=== PATIENT | male | born 1995 | race Caucasian/White ===

== ENCOUNTER 2023-07-09 07:29 | Outpatient (CLI) | payer MEDICAID, OTHER | END 2023-07-09 23:42 | disposition critical access hospital (66) | LOC: EMS 07:29 | DX: I46.9 Cardiac arrest, cause unspecified (principal) | CPT/HCPCS: A0425; A0433 ==

== ENCOUNTER 2023-07-09 07:45 | Emergency (ER) | payer MEDICAID, OTHER ==
--- NOTE | 2023-07-09 07:54 | ED Physician Documentation ---
PD HPI CPR - Stated complaint Stated Complaint: ROSC - History obtained from History obtained from: Patient - History of Present Illness Timing - onset: How many hours ago (1) Timing - onset during: Light activity (he was at grocery outlet store and just walking out when seen to collapse. No apparent pain nor injury. Bystanders noted no pulse and started CPR. EMS there in few minutes and found v-fib, pt defib and epi/defib several times with return of sustaineable rhythm sinus with pulse. Intubated enroute.) Preceding symptoms: Unknown Contributing factors: No: CAD, Diabetes Witnessed: Arrest witnessed Fall: Fell down Bystander CPR: Bystander CPR EMS findings: Unresponsive, Apneic, Pulseless, V fib Treatment SOLUTION SPECIALIST: CPR, Defibrillated, BVM, Intubated, Epi, Amiodarone Advanced directive: Full code Review of Systems Unable to obtain: Intubated, AMS PD PAST MEDICAL HISTORY - Past Medical History Cardiovascular: None Respiratory: None Endocrine/Autoimmune: None - Present Medications Home Medications: Ambulatory Orders Medication Instructions Recorded Confirmed Melatonin 5 mg PO HS PRN 07/09/23 07/09/23 - Allergies Allergies/Adverse Reactions: Allergies Allergy/AdvReac Type Severity Reaction Status Date / Time No Known Drug Allergies Allergy Verified 07/09/23 10:51 - Living Situation Living Situation: reports: With spouse/s.o. Living Arrangement: reports: At home - Social History Does the pt smoke?: No Does the pt drink ETOH?: No Does the pt have substance abuse?: Yes Substance Use and Type: Marijuana (occasional) PD ED PE NORMAL - General General: Well developed/nourished (high BMI at 47), Other (he is intubated with bagged respirations, Lungs sound symmetric. No movement nor resp effort c/w recently medicated for paralytic. ) - HEENT HEENT: Atraumatic, Pharynx benign - Cardiac Cardiac: RRR, No murmur - Respiratory Respiratory: No: Clear bilaterally (mild congested sounds both sides. ) - Abdomen Abdomen: Non distended - Derm Derm: Normal color. No: Warm and dry (sweaty.) - Extremities Extremities: No edema Results - Vitals Vitals: Vital Signs - 24 hr 07/09/23 07/09/23 07/09/23 07:55 08:00 08:10 Temperature Heart Rate 94 77 120 H Respiratory 20 20 16 Rate Blood Pressure 199/109 H 186/112 H 179/120 H O2 Saturation 89 L 83 L 89 L 07/09/23 07/09/23 07/09/23 08:20 08:30 08:39 Temperature Heart Rate 94 96 117 H Respiratory 22 24 Rate Blood Pressure 194/127 H 156/98 H O2 Saturation 83 L 84 L 07/09/23 07/09/23 07/09/23 08:45 09:00 09:15 Temperature Heart Rate 119 H 104 H 110 H Respiratory 25 H 21 Rate Blood Pressure 148/107 H 157/133 H 162/101 H O2 Saturation 87 L 84 L 96 07/09/23 07/09/23 07/09/23 09:25 09:45 10:00 Temperature Heart Rate 112 H 977 H 115 H Respiratory 24 22 26 H Rate Blood Pressure 145/80 H 98/54 L 92/58 L O2 Saturation 97 97 98 07/09/23 07/09/23 07/09/23 10:10 10:28 10:30 Temperature Heart Rate 110 H 67 70 Respiratory 24 Rate Blood Pressure 90/33 L 69/32 L O2 Saturation 94 100 07/09/23 07/09/23 07/09/23 10:45 11:00 11:15 Temperature 35.9 C L Heart Rate 68 67 69 Respiratory 20 20 20 Rate Blood Pressure 69/38 L 85/47 L 90/60 O2 Saturation 100 100 100 07/09/23 07/09/23 07/09/23 11:23 11:30 11:42 Temperature Heart Rate 69 69 67 Respiratory 20 20 Rate Blood Pressure 92/58 L 91/52 L O2 Saturation 100 100 07/09/23 07/09/23 07/09/23 11:51 12:00 12:10 Temperature Heart Rate 67 67 65 Respiratory 20 20 20 Rate Blood Pressure 91/55 L 96/59 L 88/57 L O2 Saturation 100 100 100 07/09/23 07/09/23 07/09/23 12:15 12:30 12:47 Temperature 35.9 C L Heart Rate 66 65 64 Respiratory 20 20 20 Rate Blood Pressure 90/61 93/59 L 91/60 O2 Saturation 100 97 98 Oxygen O2 Source Mechanical ventilator - EKG (time done) 07:55 EKG releavant findings:: EKG personally interpreted by author of this note. Relevant findings are: Rate: Rate (enter#) (105) Rhythm: NSR [place]: Normal Intervals: Normal [place] QRS: Normal Ischemia: Normal ST segments. No: ST elevation c/w ischemia, ST depression - Labs Labs: Laboratory Tests 07/09/23 07/09/23 07/09/23 08:09 08:09 08:09 WBC 22.4 H RBC 5.53 Hgb 16.1 Hct 51.9 MCV 93.9 MCH 29.1 MCHC 31.0 L RDW 12.1 Plt Count 311 MPV 11.3 Neut # (Auto) Not Reportable Lymph # (Auto) Not Reportable [place] # (Auto) Not Reportable Eos # (Auto) Not Reportable Baso # (Auto) Not Reportable Absolute Nucleated RBC Not Reportable Total Counted 100 Band Neuts % (Manual) 3 Reactive Lymphs % (Man) 4 Abnorm Lymph % (Manual) 0 Nucleated RBC % Not Reportable Neutrophils # (Manual) 11.9 H Lymphocytes # (Manual) 9.0 H Monocytes # (Manual) 0.2 Eosinophils # (Manual) 1.3 H Basophils # (Manual) 0.0 Differential Comment MANUAL DIFFERENTIAL Platelet Estimate NORMAL (130-450,000) Platelet Morphology NORMAL APPEARANCE RBC Morph Micro Appear NORMAL APPEARANCE Bld Gas Analysis Time Sample Site ABG pH ABG pCO2 ABG pO2 ABG HCO3 ABG Total CO2 ABG O2 Saturation ABG Base Excess Indra Test Respiration Rate O2 Delivery Device Vent Mode FiO2 Tidal Volume PEEP Pressure Support Vent Sodium 141 Potassium 2.9 L Chloride 104 Carbon Dioxide 23 Anion Gap 14.0 H BUN 21 H Creatinine 0.8 Estimated GFR (MDRD) 116 Glucose 268 H Calcium 9.0 Magnesium 2.1 Total Bilirubin 0.5 AST 197 H ALT 334 H Alkaline Phosphatase 59 Troponin I High Sens 221.1 H* B-Natriuretic Peptide 21 Total Protein 7.4 Albumin 4.6 Globulin 2.8 Albumin/Globulin Ratio 1.6 Lipase 98 H 07/09/23 07/09/23 09:20 11:49 WBC RBC Hgb Hct MCV MCH MCHC RDW Plt Count MPV Neut # (Auto) Lymph # (Auto) [place] # (Auto) Eos # (Auto) Baso # (Auto) Absolute Nucleated RBC Total Counted Band Neuts % (Manual) Reactive Lymphs % (Man) Abnorm Lymph % (Manual) Nucleated RBC % Neutrophils # (Manual) Lymphocytes # (Manual) Monocytes # (Manual) Eosinophils # (Manual) Basophils # (Manual) Differential Comment Platelet Estimate Platelet Morphology RBC Morph Micro Appear Bld Gas Analysis Time 0943 Sample Site RIGHT RADIAL ABG pH 7.29 L ABG pCO2 51 H ABG pO2 117 H ABG HCO3 24.6 ABG Total CO2 26.0 ABG O2 Saturation 98 ABG Base Excess -2.0 Indra Test POSITIVE Respiration Rate 20 O2 Delivery Device VENTILATOR Vent Mode SIMV FiO2 100.00 Tidal Volume 500 PEEP 9 Pressure Support Vent 10 Sodium Potassium Chloride Carbon Dioxide Anion Gap BUN Creatinine Estimated GFR (MDRD) Glucose Calcium Magnesium Total Bilirubin AST ALT Alkaline Phosphatase Troponin I High Sens 2580.5 H* B-Natriuretic Peptide Total Protein Albumin Globulin Albumin/Globulin Ratio Lipase - Rads (name of study) chest xray Relevant Findings:: Prelim report reviewed, EMP independent interpretation of test (some cardiomegaly. No infiltrates nor effusions. ETT below clavicles. ) CXR for line placement Relevant Findings:: Prelim report reviewed, EMP independent interpretation of test (Central line in lace without complications.) head CT Relevant Findings:: Prelim report reviewed (no ICH) chest CT Relevant Findings:: Prelim report reviewed (no PE nor aortic process. Lung parenchyma clear. ), EMP independent interpretation of test abd/pelvic CT Relevant Findings:: Prelim report reviewed (no acute abnormality. ), EMP independent interpretation of test PD Medical Decision Making - ED course Complexity details: considered differential (sudden arrest with v-fib without known recent illness nor CAD/DM. (info from ). Certainly concern for cardiomyopathy or SC. But with sudden collapse would also consider SAH/ICH, PE, aortic process, DM. ) Reviewed Lab Results: Patient had some PVCs and skipped PACs initially and placed on amiodarone drip due to recent vfib as well. BP high if anything. Some IV fluids but not too much as BP okay andconsider/eval for cardiomyopathy leading to arrest. He had been given vecoronium with etomadate for intubation. I was concerned for long duration of the vec, so given Ativan IV right away and then Propofol bolus while nursing getting propofol drip ready. , some IV fluids. He had Left leg IO and small IV left hand. My colleague placed a central line right neck for me. CXR was showing good tube position and then line position. Pt did have lower sats develop and unclear if pleth not reading well or if true lower wayne. ETT suctioned. I had concern for PE. When pt stable with sedation and BP, he was brought to CT scanner and had head, chest angion, and also abd/pelvis (last one at request of Software Lead). CT chest showed no PE, NGT and ETT were still in good position. Pt was stable on vent with drips and rested, good sats with new ventilator brought by RT. BP did drift down to first normal then slightly low. Given IV fluid boluses as the CXR and CT were showing no signs of heart strain/ failure. Bedside US by me prior to that had not shown any heart effusion and he had generally symmetric good heart contractions. Formal ECHO was not available today. had accepting space bed, though discussion with Software Lead and then Cardiology were deciding on which serivice to go to. I did not care too much, Subsequently it was decided at end and Transfer Center gave go ahead to initiate transfer. Trasnfer facilitated and accomplished by Justino NW and pt left ER in stable but critical condition. He had started with spontaneous general movemnetns and bucking at vent, but was improved with Propofol. Started Norrepinephrine prior to transfer due to BP a bit lower (with MAP above 65 though), to allow higher pressure and then increased propofol. During early ED course, pt also had guerrero placed which showed good ongoing urine output, and NG tube. HOB kept at about 30 degrees. - Critical Care Time(min): 90 Comments: multiple decisions on vent/IV drips, testing and vital sign assessments over several hours. Time Includes: Direct patient care, Reassess patient, Document care, Coordinate care, Medical consult, Family consult for tx dec Data interpretation: Labs, Pulse ox, ABG, CXR Procedures included in critical care time: Gastric intubation Procedures excluded from critical care time: EKG Departure - Departure Disposition: 02 Transfer Acute Care Hosp Clinical Impression: Ventricular fibrillation, Collapse due to cardiac arrest Condition: Stable Forms: PCP List Discharge Date/Time: 07/09/23 14:05
[2023-07-09] MEDS: LORazepam 2 MG/ML VIAL IVP STA (08:02)
[2023-07-09] MEDS ORDERED: AMIODARONE 150 MG/100 ML IV ONE (08:04)
[2023-07-09] MEDS: AMIODARONE 150 MG/3 ML VIAL IVP STA (08:06)
[2023-07-09 08:14] LABS: BASOPHILS % (AUTO) 0.4 %; EOSINOPHILS % (AUTO) 2.9 %; HCT - HEMATOCRIT 51.9 % (42.0-52.0); HGB - HEMOGLOBIN 16.1 g/dL (14.0-18.0); LYMPHOCYTES % (AUTO) 33.8 %; MEAN CORPUSCULAR HEMOGLOBIN 29.1 pg (27.0-31.0); MEAN CORPUSCULAR VOLUME 93.9 fL (80.0-94.0); MEAN PLATELET VOLUME 11.3 fL (7.4-11.4); MONOCYTES % (AUTO) 4.3 %; NEUTROPHILS % (AUTO) 55.4 %; PLT - PLATELET COUNT 311 10^3/uL (130-450); RED BLOOD COUNT 5.53 10^6/uL (4.70-6.10); RED CELL DISTRIBUTION WIDTH 12.1 % (12.0-15.0); WHITE BLOOD COUNT 22.4 x10^3/uL (4.8-10.8)
[2023-07-09] MEDS: AMIODARONE 360 MG/200 ML 200 ML IV ONE ×2 (08:14→13:59)
[2023-07-09 08:19] LABS: ABNORMAL LYMPHS % (MANUAL) 0 %
--- NOTE | 2023-07-09 08:20 | XRAY Report ---
PROCEDURE: Chest 1V INDICATIONS: chest pain TECHNIQUE: One view of the chest was acquired. COMPARISON: None. FINDINGS: Surgical changes and devices: Endotracheal tube tip projects over the midthoracic trachea. Lungs and pleura: No pleural effusions or pneumothorax. Lungs are clear. Low lung volumes. Mediastinum: Mediastinal contours appear normal. Heart size is enlarged. Bones and chest wall: No suspicious bony lesions. Overlying soft tissues appear unremarkable. IMPRESSION: No acute cardiopulmonary process. Endotracheal tube tip projects over the midthoracic trachea. Reviewed by: Jose Burger MD on 07/09/2023 8:19 AM PDT Approved by: Jose Burger MD on 07/09/2023 8:19 AM PDT Station ID: [id number]
[2023-07-09] MEDS ORDERED: PROPOFOL 200 MG/20 ML VIAL IVP ONE (08:26)
[2023-07-09 08:27] LABS: MAGNESIUM 2.1 mg/dL (1.7-2.3)
[2023-07-09 08:30] LABS: ALBUMIN 4.6 g/dL (3.2-5.5); BILIRUBIN,TOTAL 0.5 mg/dL (0.2-1.0); POTASSIUM 2.9 mmol/L (3.5-4.5)
[2023-07-09] MEDS: SODIUM CHLORIDE 0.9% 1,000 ML IV STA ×3 (08:30→12:22)
[2023-07-09] MEDS: PROPOFOL 200 MG/20 ML VIAL IVP STA ×3 (08:31→09:40)
[2023-07-09 08:33] LABS: ALBUMIN/GLOBULIN RATIO 1.6 (1.0-2.2); CREATININE 0.8 mg/dL (0.6-1.3); TOTAL PROTEIN 7.4 g/dL (6.4-8.9)
[2023-07-09] MEDS: PROPOFOL 1000 MG/100 ML 1,000 MG/100 ML BOTTLE IV SCH ×2 (08:34→14:01)
[2023-07-09 08:37] LABS: BAND NEUTROPHILS % (MANUAL) 3 %; EOSINOPHILS # (MANUAL) 1.3 10^3/uL (0-0.7); LYMPHOCYTES % (MANUAL) 36 %; MONOCYTES # (MANUAL) 0.2 10^3/uL (0.0-1.0); NEUTROPHILS # (MANUAL) 11.9 10^3/uL (1.5-6.6); REACTIVE LYMPHS % (MANUAL) 4 %
[2023-07-09] MEDS ORDERED: iohexoL-300 100 ML VIAL ONE (08:37)
[2023-07-09 08:38] LABS: DIFFERENTIAL COMMENT MANUAL DIFFERENTIAL; PLATELET ESTIMATE, MANUAL NORMAL (130-450,000) (NORMAL); PLATELET MORPHOLOGY NORMAL APPEARANCE (NORMAL); RBC MORPHOLOGY (MULTIPLE) NORMAL APPEARANCE (NORMAL)
[2023-07-09] MEDS ORDERED: VECURONIUM 10 MG VIAL ONE (08:41)
[2023-07-09] MEDS: MAG HYDROX/AL HYDROX/SIMETH 30 ML UDC PO STA (08:45)
[2023-07-09 08:48] LABS: TROPONIN I HIGH SENSITIVITY 221.1 ng/L (2.3-19.7)
[2023-07-09] MEDS: fentaNYL 2,500 MCG in SODIUM CHLORIDE 0.9% 200 ML IV STA (08:50)
--- NOTE | 2023-07-09 09:30 | XRAY Report ---
PROCEDURE: Chest for Line Placement INDICATIONS: central line placement TECHNIQUE: One view of the chest was acquired. COMPARISON: None. FINDINGS: Surgical changes and devices: The patient is intubated and endotracheal tube is 3.7 cm above the car deepa. There is a right central venous catheter, the tip of which is projected over the cavoatrial junc tion. Lungs and pleura: Diffuse pulmonary radiopacities are present bilaterally predominantly in the upper and mid lungs in a perihilar distribution. Likely a right pleural effusion. Mediastinum: Mediastinal contours appear normal. Heart size is enlarged. Bones and chest wall: No suspicious bony lesions. Overlying soft tissues appear unremarkable. IMPRESSION: 1. Tubes and lines as above. 2. Diffuse airspace opacities suggesting pulmonary edema or ARDS. Reviewed by: Bernice Newman MD on 07/09/2023 9:28 AM PDT Approved by: Bernice Newman MD on 07/09/2023 9:28 AM PDT Station ID: [id number]
[2023-07-09 09:46] LABS: ABG HCO3 24.6 mmol/L (22.0-26.0); ABG PCO2 51 mmHg (34-45); ABG PH 7.29 (7.35-7.45); ABG PO2 117 mmHg (80-100)
[2023-07-09 09:47] LABS: ABG MODE OF VENTILATION SIMV; ABG OXYGEN SATURATION 98 % (94-98); ABG RESPIRATORY RATE 20 b/min; ALLEN TEST POSITIVE
[2023-07-09] MEDS: iohexoL-300 100 ML VIAL IVP ONE (10:19)
--- NOTE | 2023-07-09 10:21 | CT Report ---
PROCEDURE: Head WO INDICATIONS: collapse, vfib TECHNIQUE: Noncontrast 4.5 mm thick angled axial sections acquired from the foramen magnum to the vertex. For r adiation dose reduction, the following was used: automated exposure control, adjustment of mA and/or kV according to patient size. COMPARISON: None. FINDINGS: Image quality: Excellent. CSF spaces: Basal cisterns are patent. Anterior left temporal arachnoid cyst. Ventricles are normal in size and shape. Brain: No midline shift. No intracranial masses or hemorrhage. Michel-white matter interface is norm al. Skull and face: Calvarium and visualized facial bones are intact, without suspicious lesions. Sinuses: Visualized sinuses and mastoids are clear. IMPRESSION: No acute intracranial pathology. Reviewed by: Anna Garcia MD, PhD on 07/09/2023 10:20 AM PDT Approved by: Anna Garcia MD, PhD on 07/09/2023 10:20 AM PDT Station ID: [id number]
--- NOTE | 2023-07-09 10:26 | CT Report ---
PROCEDURE: Angio Chest INDICATIONS: ROSC, hypoxia CONTRAST: Omnipaque 300 80ML TECHNIQUE: After the administration of intravenous contrast, 2 mm axial images were acquired from the pulmonary apices to the posterior costophrenic angles during the arterial phase. In addition, 1 mm lung kernel and 5 mm soft tissue kernel reconstructions were performed. 3-dimensional coronal oblique maximum int ensity projection (MIP) reformats, 8 mm axial MIP, and 5 mm coronal and sagittal MPR reformats were t hen performed through the thorax. For radiation dose reduction, the following was used: automated exp osure control, adjustment of mA and/or kV according to patient size. COMPARISON: None. FINDINGS: Image quality: Excellent. Large vessels: No filling defects within the opacified pulmonary arteries, accounting for motion and contrast timing. No evidence of acute aortic syndrome or aortic aneurysm. Lungs and pleura: Bilateral lung consolidation. No pleural effusions. No pneumothorax. No suspicious pulmonary nodules which require follow up. Mediastinum: Right IJ central venous catheter with tip position in the distal SVC. ET tube with tip p osition 2.5 cm. The raymon. OG tube with tip positioned in the mid stomach. Heart is enlarged. No per icardial effusion. No large vessel abnormality. No mediastinal adenopathy by size criteria. Chest wall and lower neck: Thyroid is unremarkable. No axillary or supraclavicular adenopathy by size . Bones: No aggressive osseous abnormality. Upper Abdomen: Unremarkable. IMPRESSION: No pulmonary embolus or aortic dissection. Lung consolidation concerning for pneumonia. Reviewed by: Anna Garcia MD, PhD on 07/09/2023 10:25 AM PDT Approved by: Anna Garcia MD, PhD on 07/09/2023 10:25 AM PDT Station ID: [id number]
--- NOTE | 2023-07-09 10:34 | CT Report ---
PROCEDURE: Abdomen/Pelvis WO INDICATIONS: syncope TECHNIQUE: A CT scan of the abdomen and pelvis was performed without the use of intravenous contrast. Images we re recorded and evaluated at appropriate window settings. Reformats: coronal and sagittal. For radiat ion dose reduction, the following was used: automated exposure control, adjustment of mA and/or kV ac cording to patient size. COMPARISON: None. FINDINGS: Image quality: Diagnostic. Liver: No contour-deforming mass. Liver is enlarged measuring 24.9 cm in clavicular line. Gallbladder and biliary tree: Gallbladder is normal. Spleen: No splenomegaly. Pancreas: No pancreatic ductal dilation. Adrenals: No adrenal nodule. Kidneys and ureters: No hydronephrosis. No renal cystic lesion which requires follow up. No solid mas s. Contrast material genitourinary collecting systems related to recent contrasteds CTA of the chest. Stomach, bowel and peritoneum: OG tube tip position in the mid stomach. No bowel distension. No patho logic free fluid. The appendix is normal. Lymph nodes: No central or retroperitoneal adenopathy. Vessels: No infrarenal aortic aneurysm. PELVIS Reproductive organs: Unremarkable. Bladder: Bladder decompressed by Fishman catheter. Pelvic lymph nodes: No pelvic adenopathy by size criteria. Bones: No aggressive osseous abnormality. Other: No significant ventral or inguinal hernia. Gas in the left common femoral vein. IMPRESSION: No acute disease process. Gas in the left common femoral vein possibly iatrogenic. Please correlate with clinical history and c linical findings. Reviewed by: Anna Garcia MD, PhD on 07/09/2023 10:32 AM PDT Approved by: Anna Garcia MD, PhD on 07/09/2023 10:32 AM PDT Station ID: [id number]
[2023-07-09] MEDS: VECURONIUM 10 MG VIAL IVP STA (12:21)
[2023-07-09 12:50] VITALS: BP 91/60; O2SAT 98
[2023-07-09] MEDS: NOREPINEPHRINE/0.9 % NS 8 MG/250 ML BAG IV SCH (14:01)
== END 2023-07-09 14:05 | disposition short-term general hospital (02) ==
LOC: ED 07:45
DX: I46.9 Cardiac arrest, cause unspecified (principal); I49.01 Ventricular fibrillation; Z79.899 Other long term (current) drug therapy; Z68.42 Body mass index [BMI] 45.0-49.9, adult
CPT/HCPCS: 36415; 36556; 51702; 80053; 82803; 83690; 83735; 83880; 84484; 85025; 93005; 94002; 99291; 99292